=== PATIENT | male | born 1990 | race Caucasian/White ===

== ENCOUNTER 2016-07-22 15:15 | Emergency (ER) | payer SELFPAY | END 2016-07-22 15:35 | disposition home or self-care (01) | LOC: BURERS 15:15 | DX: M54.5 Low back pain (principal); G89.29 Other chronic pain; F17.210 Nicotine dependence, cigarettes, uncomplicated | CPT/HCPCS: 99283 ==

== ENCOUNTER 2018-09-11 18:31 | Emergency (ER) | payer SELFPAY | END 2018-09-11 18:58 | disposition home or self-care (01) | LOC: BURERS 18:31 | DX: S83.91XA Sprain of unspecified site of right knee, initial encounter (principal); F17.210 Nicotine dependence, cigarettes, uncomplicated; X50.9XXA Other and unspecified overexertion or strenuous movements or postures, initial encounter | CPT/HCPCS: 99281 ==

== ENCOUNTER 2018-11-21 09:23 | Emergency (ER) | payer SELFPAY | END 2018-11-21 09:51 | disposition home or self-care (01) | LOC: BURERS 09:23 | DX: R53.1 Weakness (principal); F17.210 Nicotine dependence, cigarettes, uncomplicated | CPT/HCPCS: 99281 ==

== ENCOUNTER 2019-08-13 12:01 | Emergency (ER) | payer MEDICARE, OTHER ==
--- NOTE | 2019-08-13 16:40 | RAD ---
PORTABLE CHEST: Date: 08-13-2019 An AP film at 1301 is compared with an 03-14-11 study. FINDINGS: The heart is normal in size. Currently the lungs are clear with no infiltrates, effusions, or other f indings of concern. There is no congestive change. IMPRESSION: No acute thoracic findings. POS: HOME
== END 2019-08-13 13:30 | disposition home or self-care (01) ==
LOC: BURERS 12:01
DX: B34.9 Viral infection, unspecified (principal); F17.210 Nicotine dependence, cigarettes, uncomplicated; Z20.828 Contact with and (suspected) exposure to other viral communicable diseases
CPT/HCPCS: 71045; 87635; 87804; U0002